=== PATIENT | male | born 1965 | race Caucasian/White ===

== ENCOUNTER → 2025-07-22 01:36 | Outpatient (CLI) | payer MEDICARE, SELFPAY ==
--- NOTE | 2025-07-22 06:45 | DI.US_ITS ---
Exam(s) US NEEDLE LOCAL OTHER WO RAD EXAM: right-sided nodule,ultrasound guided bx,e04.1 COMPARISON: No exams were available for comparison TECHNIQUE: Ultrasound performed using standard protocol. FINDINGS: Sonography was provided for Dr. May during the performance of a right thyroid nodule biopsy. Please refer to the procedure report for complete details. DATA REPOSITORY:
--- NOTE | 2025-07-22 11:30 | PAPNONF_PTH ---
PATIENT: Martha Dave LOC: [facility] Card#:[id number] AGE/SX: 60/M ROOM: RE07/22/[address]: Ml Ureña : 1965 BED: DIS: SPEC #: [id number] RECD: 07/22/25 12:49 STATUS: MARILUZ RECanelo #: [id number] VICKIE: 07/22/25 11:[address]: Adonay May DEPT: [facility] Cytology RECD BY: Yenifer Figueroa ENTERED: 07/22/25 12:50 SP TYPE: CARIDAD GUADALUPE DR: Ml Ureña Amy B Tissues: 1 - BODY FLUID CYTO-FINE NEEDLE ASPIRATE-[facility] Procedures: BODY FLUID CYTO-FINE NEEDLE ASPIRATE-[facility] Comments: [id number] (PATH FNA CONSULT) (REFRIGERATED)
--- NOTE | 2025-07-22 11:49 | W.PROCNOTE ---
Date of service: 07/22/25 Time of Service: 11:49 Procedure Note Date of procedure: 07/22/25 Procedure: FNA, right thyroid nodule, ultrasound-guided, pathology present Surgeon/Proceduralist/Physician: Adonay May Procedure Diagnosis: Right thyroid nodule, meeting criteria for biopsy Procedure Indications: The patient is here with his today. He notes no new problems. He denies any history of skin cancer. He does have a right sided [employer] shunt. I reviewed the risks including bleeding, infection, failure to come up with an answer, and need for further treatment with the patient and his . Written consent was obtained. The below was then performed. Procedure Description: The patient was prepped and draped in appropriate fashion with his neck slightly extended. Ultrasound was used to localize the right sided thyroid nodule and then 2% lidocaine with 1/100,000 epinephrine was injected into the skin and subcutaneous tissues overlying the nodule, taking care to stay at least as inch away from his shunt. Following this, a 25-gauge needle was passed into the thyroid nodule, and the aspirated material given to pathology who verified adequate cellularity which interestingly enough revealed significant squamous material, with rare follicular cell groups. The second aspiration was done for more material. The decision was made in conjunction with pathology not to perform Afirma given the squamous material. Following the completion of the second pass, a sterile dressing was applied the patient was allowed to sit, stand, and ambulate. He tolerated this procedure well. He will remove the bandage in a couple of hours. He will avoid anything strenuous today. They will call with any signs of infection or inflammation. They will call if they do not hear from me within 1 week with regard to the aspirated material pathologic analysis. He may use Tylenol or ibuprofen for discomfort. He and his had no further questions. They are comfortable with this plan.
== END ==
LOC: DI 01:36
PROVIDERS: PCP Nurse Practitioner Family; Visit Provider Registered Nurse Maternal Newborn
DX: E04.1 Nontoxic single thyroid nodule (principal)
CPT/HCPCS: 10005; 76942; 88104